=== PATIENT | male | born 1995 | race Caucasian/White ===

== ENCOUNTER → 2022-05-15 | Outpatient (CLI) | payer OTHER ==
--- NOTE | 2022-05-15 19:23 | CT ---
EXAMINATION TYPE: CT chest w con CT DLP: 234 mGycm, Automated exposure control for dose reduction was used. DATE OF EXAM: 05/15/2022 5:07 PM COMPARISON: None. CLINICAL INDICATION:Male, 26 years old with history of R91.8, Lung lesion, abnormal lung field findin gs TECHNIQUE: Multiple axial images were obtained through the chest. Sagittal and coronal reformats were created for review. Contrast used:100 mL of Isovue 300 with IV Contrast Oral contrast used: none. FINDINGS: LUNGS/ PLEURA: No focal consolidation, pneumothorax or pleural effusion. No pulmonary nodules. No abn ormality identified. AIRWAY: Patent and unremarkable. HEART: Size within normal limits. MEDIASTINUM: No gross evidence of adenopathy. VASCULATURE: No aortic aneurysm. MUSCULOSKELETAL: No acute osseous abnormalities. SOFT TISSUES/LYMPH NODES: Unremarkable. LOWER NECK: No significant findings. UPPER ABDOMEN: No significant findings. IMPRESSION: No priors were available for comparison. There is no abnormality within the lungs, no pulmonary nodul es, no masses, no focal consolidation, no pleural effusion, no pneumothorax.
== END | disposition home or self-care (01) ==
LOC: RADCTMAIN 16:04
PROVIDERS: ATTEND Family Medicine
DX: R91.8 Other nonspecific abnormal finding of lung field (principal)
CPT/HCPCS: 71260; Q9967

== ENCOUNTER → 2022-09-30 | Outpatient (CLI) | payer OTHER ==
--- NOTE | 2022-10-01 07:20 | CA ---
Transthoracic Echo Report Name: Jude Cardona Age: 27 Gender: M : 1995 Exam Date: 09/30/2022 15:04 Exam Location: [facility] Ht (in): 66 Wt (lb): 165 Ordering Physician: Jacquie Maravilla MD Attending/Referring Phys: Wood Finisher Apprentice Paris Salazar [facility] Procedure CPT: Indications: R06.00 DYSPNEA, UNSPECIFIED Cardiac Hx: Technical Quality: Fair Contrast 1: Total Dose (mL): Contrast 2: Total Dose (mL): MEASUREMENTS (Male / Female) Normal Values 2D ECHO LV Diastolic Diameter PLAX 5.1 cm 4.2 - 5.9 / 3.9 - 5.3 cm LV Systolic Diameter PLAX 3.6 cm IVS Diastolic Thickness 0.6 cm 0.6 - 1.0 / 0.6 - 0.9 cm LVPW Diastolic Thickness 0.8 cm 0.6 - 1.0 / 0.6 - 0.9 cm LV Relative Wall Thickness 0.3 LVOT Diameter 2.0 cm Ascending Aorta Diameter 2.6 cm M-MODE Aortic Root Diameter MM 2.7 cm LA Systolic Diameter MM 3.0 cm LA Ao Ratio MM 1.1 AV Cusp Separation MM 2.3 cm DOPPLER AV Peak Velocity 107.9 cm/s AV Peak Gradient 4.7 mmHg AV Mean Velocity 78.6 cm/s AV Mean Gradient 2.7 mmHg AV Velocity Time Integral 21.8 cm LVOT Peak Velocity 96.2 cm/s LVOT Peak Gradient 3.7 mmHg LVOT Velocity Time Integral 19.9 cm LVOT Stroke Volume 63.9 cm??? LVOT Stroke Volume Index 34.7 ml/m??? LVOT Cardiac Index 2649.9 cm???/min???m??? AV Area Cont Eq vti 2.9 cm??? AV Area Cont Eq pk 2.9 cm??? Mitral E Point Velocity 68.6 cm/s Mitral A Point Velocity 50.3 cm/s Mitral E to A Ratio 1.4 MV Deceleration Time 163.0 ms LV E' Lateral Velocity 14.6 cm/s Mitral E to LV E' Lateral Ratio 4.7 LV E' Septal Velocity 11.1 cm/s Mitral E to LV E' Septal Ratio 6.2 TR Peak Velocity 184.9 cm/s TR Peak Gradient 13.7 mmHg Right Atrial Pressure 3.0 mmHg Pulmonary Artery Systolic Pressu 16.7 mmHg Right Ventricular Systolic Press 16.7 mmHg FINDINGS Left Ventricle Normal Left ventricular size, wall thickness, systolic function with no obvious regional wall motion abnormalities. Normal Left ventricular diastolic filling pattern. Left ventricular ejection fraction is estimated at 50-55%. Right Ventricle Normal right ventricular size and function. . Right Atrium Normal right atrial size. Left Atrium Normal left atrial size. Mitral Valve Structurally normal mitral valve. Trace mitral regurgitation. Aortic Valve Trileaflet aortic valve. No aortic valve stenosis or regurgitation. Tricuspid Valve Structurally normal tricuspid valve. Trace tricuspid regurgitation. Pulmonic Valve Structurally normal pulmonic valve. Trace pulmonic regurgitation. Pericardium No pericardial effusion. Aorta Normal size aortic root and proximal ascending aorta. CONCLUSIONS 1. Normal left ventricle size and systolic function 2. Trace mitral and tricuspid regurgitation with normal right ventricle systolic pressure Previewed by: Dr. Charlene James MD (Electronically Signed) Final Date: 01 October 2022 07:19
== END | disposition home or self-care (01) ==
LOC: RADECHMAIN 14:59
PROVIDERS: ATTEND Internal Medicine Critical Care Medicine
DX: I08.1 Rheumatic disorders of both mitral and tricuspid valves (principal); R06.00 Dyspnea, unspecified
CPT/HCPCS: 93306